=== PATIENT | male | born 2000 | race Caucasian/White ===

== ENCOUNTER 2021-11-05 12:16 | Emergency (ER) | payer OTHER | END 2021-11-05 15:12 | disposition home or self-care (01) | LOC: ER1 12:16 | DX: S01.01XA Laceration without foreign body of scalp, initial encounter (principal); Z23 Encounter for immunization; F17.200 Nicotine dependence, unspecified, uncomplicated; V49.50XA Passenger injured in collision with unspecified motor vehicles in traffic accident, initial encounter; Y92.410 Unspecified street and highway as the place of occurrence of the external cause | CPT/HCPCS: 12002; 70450; 72125; 73130; 90471; 90715; 99284 ==